=== PATIENT | female | born 1955 | race Caucasian/White ===

== ENCOUNTER 2022-12-23 09:59 | Day surgery (SDC) | payer MEDICARE ==
[~2022-12-23] VITALS: Ht 160 cm; Wt 80.2 kg
[2022-12-23] MEDS ORDERED: ZETIA 10MG TAB10 MG PO (10:33)
[2022-12-23] MEDS ORDERED: SYNTHROID 0.0.025 MG PO (10:33)
[2022-12-23] MEDS ORDERED: FLOMAX 0.40.4 MG/CAP PO (10:33)
[2022-12-23 10:46] VITALS: BP 137/62; PULSE 69; TEMP 97.9
[2022-12-23] MEDS ORDERED: ROXICODONE 55 MG/TAB PO (12:19)
[2022-12-23 12:55] VITALS: BP 156/96; PULSE 54; TEMP 96.9
[2022-12-23 13:10] VITALS: BP 150/69; PULSE 64
[2022-12-23 13:25] VITALS: BP 145/67; PULSE 62
[2022-12-23 13:40] VITALS: BP 138/65; PULSE 68
[2022-12-23 13:55] VITALS: BP 137/60; PULSE 60
--- NOTE | 2022-12-23 14:10 | NUR ---
1255 RETURNS TO ROOM 4 PER CART. AWAKE, ALERT. RESP UNLABORED. HOB ELEVATED 30 DEGREES. DENIES PAIN. ADMITS TO URINARY URGENCY. VITAL SIGNS OBTAINED. CALL LIGHT AT SIDE. IN ROOM. 1310 AMBULATES TO BATHROOM WITH STANDBY ASSIST. PATIENT REPORTS VOIDED. URINE LIGHT RED. 1325 TOLERATES PO JUICE AND PUDDING WITHOUT NAUSEA 1345 DISCHARGE INSTRUCTIONS REVIEWED. PATIENT VERBALIZES UNDERSTANDING. COPY PROVIDED IN DISCHARGE FOLDER. 1352 AMBULATES TO BATHROOM. VOIDS. THEN SITS ON CHAIR. DRESSES SELF
== END 2022-12-23 14:10 | disposition home or self-care (01) ==
LOC: SDCO 09:59
DX: N20.0 Calculus of kidney (principal); Q60.0 Renal agenesis, unilateral; G47.33 Obstructive sleep apnea (adult) (pediatric); N39.0 Urinary tract infection, site not specified; Z87.891 Personal history of nicotine dependence
CPT/HCPCS: C1769; C2617; J0690; J1100; J1885; J2405; J2704; J3010; J7120